=== PATIENT | female | born 1975 | race Caucasian/White ===

== ENCOUNTER 2021-06-18 21:22 | Emergency (ER) | payer OTHER ==
[~2021-06-18] VITALS: Ht 170.2 cm; Wt 65.8 kg
[~2021-06-18 21:22] MED LIST: SUDAFED PO
[2021-06-18] MEDS ORDERED: HALOPERIDOL LACTATE 5 MG/1 ML VIAL ONE (21:45)
[2021-06-18] MEDS ORDERED: HALOPERIDOL LACTATE 5 MG/1 ML VIAL IM ONE (21:45)
[2021-06-18] MEDS ORDERED: IV NORMAL SALINE 1000 ML BAG IV ONE (22:45)
[2021-06-18 23:08] LABS: HEMATOCRIT 36.6 % (31.2-41.9); MEAN CORPUSCULAR HEMOGLOBIN 26.8 uug (24.7-32.8); MEAN CORPUSCULAR VOLUME 84.2 fL (75.5-95.3); PLATELET COUNT (AUTO) 352 K/uL (179-408)
[2021-06-18 23:12] LABS: CREATININE 0.8 mg/dL (0.6-1.3); POTASSIUM 3.4 mmol/L (3.5-5.1)
[2021-06-18 23:19] LABS: *AMPHETAMINE, URINE NEGATIVE (NEGATIVE); *CANNABINOID, URINE NEGATIVE (NEGATIVE); *COCCAINE, URINE NEGATIVE (NEGATIVE); *OPIATE, URINE NEGATIVE (NEGATIVE); *PHENCYCLIDINE SCREEN,URINE NEGATIVE (NEGATIVE)
--- NOTE | 2021-06-18 23:19 | NUR ---
First contact. Security called for ER provider. Pt attempting to walk out of ER and clearly has an unsteady gait. Security present to bedside immediately. Pt placed on monitor and back into bed.
[2021-06-18] MEDS ORDERED: LORAZEPAM 2 MG/1 ML VIAL ONE (23:20)
[2021-06-18 23:24] LABS: THYROID STIMULATING HORMONE 0.872 mIU/mL (0.358-3.740)
[2021-06-18 23:27] LABS: BILIRUBIN,DIRECT 0.2 mg/dL (0.0-0.2); BILIRUBIN,TOTAL 0.7 mg/dL (0.2-1.0); TOTAL PROTEIN, SERUM 8.2 g/dL (6.4-8.2)
[2021-06-18] MEDS ORDERED: LORAZEPAM 2 MG/1 ML VIAL IM ONE (23:45)
--- NOTE | 2021-06-19 08:11 | NUR ---
pt awake, ambulated to bathroom in steady gait.
--- NOTE | 2021-06-19 08:30 | NUR ---
Pt is awake, alert and oriented x 4, NAD noted.
--- NOTE | 2021-06-19 09:30 | NUR ---
Pt eating breakfast, states she wants to leave. Ambulates with steady gait, A/O x 4. Pt given coffee per her request.
--- NOTE | 2021-06-19 10:36 | NUR ---
Rinku diaz in [facility] - 06/19/21 at 1133 by FABY Jenifer cavazos rn midline gauge 18, radha
--- NOTE | 2021-06-19 10:52 | NUR ---
IV removed. Catheter intact and site benign. Pressure and 4x4 gauze applied to site. No bleeding noted.
--- NOTE | 2021-06-19 10:52 | NUR ---
Patient discharged to home in stable condition. Written and verbal after care instructions given. Patient verbalizes understanding of instructions. Stressed follow up or return to ER for worsening s/s.
--- NOTE | 2021-06-19 11:36 | NUR ---
NOTE: THE ORDER FOR MIDLINE IS MISTAKE.
== END 2021-06-19 10:53 | disposition home or self-care (01) ==
LOC: ER 21:23
DX: F10.229 Alcohol dependence with intoxication, unspecified (principal); Y90.8 Blood alcohol level of 240 mg/100 ml or more; R94.31 Abnormal electrocardiogram [ECG] [EKG]; Z82.49 Family history of ischemic heart disease and other diseases of the circulatory system
CPT/HCPCS: 36415; 80048; 80076; 80307; 80320; 84443; 84702; 85025; 93005; 96360; 96372; 99285; J1630; J2060; A4663; G0480